=== PATIENT | female | born 1950 | race Hispanic/Latino ===

== ENCOUNTER 2016-12-26 09:59 | Emergency (ER) | payer MEDICARE, BC ==
[2016-12-26 10:19] VITALS: TEMP 98.8
[2016-12-26 10:22] VITALS: BMI 31.6
--- NOTE | 2016-12-26 10:45 | ED PDOC ---
Arrival/HPI - General Chief Complaint: Lower Extremity Problem/Injury Time Seen by Provider: 12/26/16 10:31 Historian: Patient - History of Present Illness Narrative History of Present Illness (Text): 12/26/16 10:42 66yo female with psychiatric disease history referred to ED by her PMD for left lower leg pain x 10days. she describes pain as deep cramping pain. states she noticed bruise to the area and thought she injured it. Saw her PMD today and was referred to ED for evaluation. She did not take any analgesic. Denies fever , trauma, chills, chest pain, SOB, diaphoresis, nausea, vomiting, any other complaint. Past Medical History - Provider Review Nursing Documentation Reviewed: Yes - Infectious Disease Hx of Infectious Diseases: None - Tetanus Immunization Tetanus Immunization: Unknown - Reproductive Menopause: Yes - Past Medical History Past Medical History: No Previous - Cardiac Hx Pacemaker: No - Neurological Hx Paralysis: No - Renal Hx Renal Disorder: No - Endocrine/Metabolic Hx Endocrine Disorders: No - Hematological/Oncological Hx Blood Transfusions: No - Musculoskeletal/Rheumatological Hx Musculoskeletal Disorders: No - Psychiatric Hx Depression: Yes Hx Substance Use: No - Surgical History Hx Hysterectomy: Yes Hx Orthopedic Surgery: Yes Other/Comment: ACID REFLUX - Anesthesia Hx Anesthesia Reactions: No Hx Malignant Hyperthermia: No - Suicidal Assessment Feels Threatened In Home Enviroment: No Family/Social History - Physician Review Nursing Documentation Reviewed: Yes Family/Social History: Unknown Family HX Smoking Status: Never Smoked Hx Alcohol Use: No Hx Substance Use: No Allergies/Home Meds Allergies/Adverse Reactions: Allergies No Known Allergies Allergy (Verified 03/30/14 09:26) Home Medications: Home Meds Medication Instructions Recorded Confirmed buPROPion SR [Wellbutrin SR] 150 mg PO QAM 03/30/14 12/26/16 ARIPiprazole [Abilify] 7.5 mg PO DAILY 12/26/16 12/26/16 Review of Systems - Physician Review All systems were reviewed & negative as marked: Yes - Review of Systems Constitutional: Normal Eyes: Normal ENT: Normal Respiratory: Normal Cardiovascular: Normal Gastrointestinal: Normal Genitourinary Female: Normal Musculoskeletal: Arthralgias (Left leg pain) Skin: Normal Neurological: Normal Endocrine: Normal Hemo/Lymphatic: Normal Psychiatric: Normal Physical Exam Vital Signs Reviewed: Yes Vital Signs Temp Pulse Resp BP Pulse Ox 12/26/16 13:11 98.8 F 82 16 136/84 99 12/26/16 12:21 75 18 148/89 97 12/26/16 11:00 79 18 158/96 H 97 12/26/16 10:29 98.8 F 88 18 165/104 H 97 12/26/16 10:16 98.8 F 88 16 165/104 H 97 Temperature: Afebrile Blood Pressure: Normal Pulse: Regular Respiratory Rate: Normal Appearance: Positive for: Well-Appearing, Non-Toxic, Comfortable Pain Distress: None Mental Status: Positive for: Alert and Oriented X 3 - Systems Exam Head: Present: Atraumatic, Normocephalic Pupils: Present: PERRL Extroacular Muscles: Present: EOMI Conjunctiva: Present: Normal Mouth: Present: Moist Mucous Membranes Neck: Present: Normal Range of Motion Respiratory/Chest: Present: Clear to Auscultation, Good Air Exchange. No: Respiratory Distress, Accessory Muscle Use Cardiovascular: Present: Regular Rate and Rhythm, Normal S1, S2. No: Murmurs Abdomen: Present: Normal Bowel Sounds. No: Tenderness, Distention, Peritoneal Signs Back: Present: Normal Inspection Upper Extremity: Present: Normal Inspection. No: Cyanosis, Edema Lower Extremity: Present: NORMAL PULSES, Normal ROM, Swelling (LEft calf), Erythema (Mild erythema of left calf area noted), Neurovascularly Intact, Capillary Refill < 2 s. No: Edema, CALF TENDERNESS, Cyanosis (Pinpoint pupura noted on left calf), Alessandra's Sign, Tenderness, Temperature Abnormalties Neurological: Present: GCS=15, CN II-XII Intact, Speech Normal Skin: Present: Warm, Dry, Normal Color. No: Rashes Psychiatric: Present: Alert, Oriented x 3, Normal Insight, Normal Concentration Medical Decision Making ED Course and Treatment: 12/26/16 14:51 PEr US tech Doppler was negative for DVT LEft tib/fib xray - Negative Result was DW the pt. She was afebrile. she will however be placed on prophylactic abx secondary to the mild erythema noted to the area. Symptoms is likley secondary to vasculitis. She was advised to f/u with her PMD. TRT ED for any new or worsening symptoms. - RAD Interpretation Radiology Orders: 12/26/16 10:42 DUPLEX LOWER EXTRM VEIN BILAT [US] Stat 12/26/16 11:47 TIBIA FIBULA LEFT [RAD] Stat - Medication Orders Current Medication Orders: Discontinued Medications Cephalexin Monohydrate (Keflex) 500 mg PO STAT STA PRN Reason: Protocol Stop: 12/26/16 12:37 Last Admin: 12/26/16 13:03 Dose: 500 mg Tramadol HCl (Ultram) 50 mg PO STAT STA Stop: 12/26/16 12:37 Last Admin: 12/26/16 13:03 Dose: 50 mg Disposition/Present on Arrival - Present on Arrival Any Indicators Present on Arrival: No History of DVT/PE: No History of Uncontrolled Diabetes: No Urinary Catheter: No History of Decub. Ulcer: No History Surgical Site Infection Following: None - Disposition Have Diagnosis and Disposition been Completed?: Yes Diagnosis: Leg pain Disposition: HOME/ ROUTINE Disposition Time: 12:40 Patient Plan: Discharge Condition: STABLE Discharge Instructions (ExitCare): Leg Pain (ED) Additional Instructions: Take medication as directed Follow up with your doctor Return to ED for any new or worsening symptoms Prescriptions: Cephalexin [cephalexin] 500 mg PO TID #21 cap traMADol [Ultram] 50 mg PO TID #10 tab Referrals: Gema Martines MD [Primary Care Provider] - Follow up with primary
--- NOTE | 2016-12-26 12:38 | RAD ---
PROCEDURE: Radiographs of the left tibia and fibula. HISTORY: leg pain COMPARISON: None available. TECHNIQUE: Frontal and lateral views obtained. FINDINGS: BONES: No fracture or destructive lesion. JOINT SPACES: Unremarkable. OTHER FINDINGS: None. IMPRESSION: Unremarkable radiographs of the left tibia and fibula.
[2016-12-26 13:12] VITALS: BP 136/84; PULSE 82; RESP 16; O2SAT 99
--- NOTE | 2016-12-26 18:32 | US ---
HISTORY: Leg pain and swelling. Evaluate for DVT PHYSICIAN(S): Brandon Roberts MD. TECHNIQUE: Duplex sonography and color-flow Doppler with graded compression were used to evaluate the deep venous systems of both lower extremities. FINDINGS: The visualized deep venous systems of both lower extremities are sonographically normal and compressible. Normal wave forms and augmentation are seen. There is no sonographic evidence for deep venous thrombosis in the visualized segments of both lower extremities. IMPRESSION: No sonographic evidence for deep venous thrombosis in the visualized segments of both lower extremities.
== END 2016-12-26 13:10 | disposition home or self-care (01) ==
LOC: ED 09:59
DX: M79.605 Pain in left leg (principal)